=== PATIENT | female | born 1985 | race Caucasian/White ===

== ENCOUNTER 2021-09-05 18:53 | Emergency (ER) | payer MEDICAID ==
[~2021-09-05] VITALS: Ht 160 cm; Wt 84.1 kg
[2021-09-05] MEDS ORDERED: IBUPROFEN 400 MG TABLET PO ONE (20:15)
[2021-09-05 21:02] VITALS: BP 118/75
[2021-09-05] MEDS ORDERED: HYDR-4527 PO (21:15)
== END 2021-09-05 21:24 | disposition home or self-care (01) ==
LOC: EMS 18:59
DX: F41.9 Anxiety disorder, unspecified (principal); M25.612 Stiffness of left shoulder, not elsewhere classified; M25.611 Stiffness of right shoulder, not elsewhere classified; Z90.49 Acquired absence of other specified parts of digestive tract; Z98.890 Other specified postprocedural states
CPT/HCPCS: 93005; 99283

== ENCOUNTER 2021-09-25 04:03 | Emergency (ER) | payer MEDICAID ==
[~2021-09-25] VITALS: Ht 160 cm; Wt 84.1 kg
[~2021-09-25 04:03] MED LIST: HYDR-4527 PO
[2021-09-25 04:04] VITALS: BP 108/67
== END 2021-09-25 06:25 | disposition left against medical advice (07) ==
LOC: EMS 04:04
DX: R42 Dizziness and giddiness (principal); Z53.21 Procedure and treatment not carried out due to patient leaving prior to being seen by health care provider
CPT/HCPCS: 93005; 99283

== ENCOUNTER 2022-10-27 18:34 | Emergency (ER) | payer MEDICAID, OTHER ==
[~2022-10-27] VITALS: Ht 165.1 cm; Wt 72.7 kg
[2022-10-27 18:57] VITALS: BP 112/54; PULSE 81; RESP 18; TEMP 86
[2022-10-27] MEDS ORDERED: DOXY-354 PO (21:01)
[2022-10-27] MEDS ORDERED: CEPH-558 PO (21:01)
[2022-10-27] MEDS ORDERED: CEPHALEXIN MONOHYDRATE 500 MG CAPSULE PO ONE (21:15)
[2022-10-27] MEDS ORDERED: DOXYCYCLINE HYCLATE 100 MG TABLET PO ONE (21:15)
[2022-10-28] MEDS ORDERED: DIPH25CA85 PO (02:10)
== END 2022-10-27 21:25 | disposition home or self-care (01) ==
LOC: EMS 18:35
DX: L03.211 Cellulitis of face (principal); F41.9 Anxiety disorder, unspecified; Z90.49 Acquired absence of other specified parts of digestive tract
CPT/HCPCS: 99283

== ENCOUNTER 2022-10-27 22:29 | Emergency (ER) | payer MEDICAID, OTHER ==
[~2022-10-27] VITALS: Ht 160 cm; Wt 84.0 kg
[~2022-10-27 22:29] MED LIST changes: +CEPH-558 PO; +DOXY-354 PO
[2022-10-27 23:30] VITALS: BP 128/63; PULSE 78; RESP 18; TEMP 97.3
[2022-10-27] MEDS ORDERED: DiphenhydrAMINE HCL 25 MG CAPSULE PO ONE (23:30)
[2022-10-28] MEDS ORDERED: DIPH25CA85 PO (02:10)
== END 2022-10-28 03:10 | disposition home or self-care (01) ==
LOC: EMS 22:30
DX: K13.0 Diseases of lips (principal); F41.9 Anxiety disorder, unspecified; Z90.49 Acquired absence of other specified parts of digestive tract; Z98.890 Other specified postprocedural states
CPT/HCPCS: 99282; Z7502; Z7610

== ENCOUNTER 2023-03-30 13:42 | Emergency (ER) | payer OTHER ==
[~2023-03-30] VITALS: Ht 160 cm; Wt 86.4 kg
[~2023-03-30 13:42] MED LIST changes: +DIPH25CA85 PO
[2023-03-30 13:44] VITALS: TEMP 98.9
[2023-03-30] MEDS: HydrOXYzine PAMOATE 50 MG CAPSULE PO ONE (14:06)
[2023-03-30] MEDS ORDERED: HYDR50CA7 PO (14:53)
[2023-03-30 15:10] VITALS: BP 109/62; PULSE 85; RESP 20
[2023-03-30 15:28] LABS: ALCOHOL, URINE DRUG SCREEN NEGATIVE (NEGATIVE); AMPHET/METH SCREEN,URINE NEGATIVE (NEGATIVE); BARBITURATE SCREEN, URINE NEGATIVE (NEGATIVE); BENZODIAZEPINES SCREEN,URINE NEGATIVE (NEGATIVE); CANNABINOID SCREEN,URINE NEGATIVE (NEGATIVE); COCAINE SCREEN,URINE NEGATIVE (NEGATIVE); METHADONE SCREEN, URINE NEGATIVE (NEGATIVE); OPIATE SCREEN,URINE NEGATIVE (NEGATIVE); PHENCYCLIDINE SCREEN,URINE NEGATIVE (NEGATIVE)
== END 2023-03-30 15:38 | disposition home or self-care (01) ==
LOC: EMS 13:42
DX: F41.9 Anxiety disorder, unspecified (principal); Z90.49 Acquired absence of other specified parts of digestive tract; Z98.890 Other specified postprocedural states
CPT/HCPCS: 80307; 99283